=== PATIENT | female | born 1940 | race Caucasian/White ===

== ENCOUNTER 2017-02-09 12:30 | Inpatient (IN) | payer BC, OTHER ==
[~2017-02-09] VITALS: Ht 162.6 cm; Wt 77.4 kg
[2017-02-09 12:45] LABS: BASE EXCESS -9.9 mEq/L (-3 to +3); BICARBONATE 19.7 mEq/L (22-26); METHEMOGLOBIN 0.8 % (0-1.5); PCO2 58 mm Hg (35-45); PO2 270 mm Hg (80-100)
[2017-02-09 12:46] LABS: COMMENTS - BLOOD GASES A+C+; DEVICE VENT; FI02 100 %; MODE NSPONT; SITE RR; TOTAL RESP RATE 46 resp/min; pH 7.14 (7.35-7.45)
[2017-02-09 12:47] LABS: PRES. SUPPORT 10 CM/H2O
[2017-02-09 13:06] LABS: HEMATOCRIT 42.4 % (36.0-46.0); MCH 29.9 PG (29.0-34.0); MCV 90.6 FL (83-99); MEAN PLAT.VOLUME 10.3 uM^3 (9.5-12.4); PLATELET COUNT 390 K/uL (156-360); RBC DIS.WIDTH-CV 11.9 % (11.8-14.6); RBC DIS.WIDTH-SD 39.4 % (39-53); RED BLOOD COUNT 4.68 M/uL (3.80-5.20); WHITE BLOOD COUNT 14.8 K/uL (4.1-10.2)
[2017-02-09 13:16] LABS: CHLORIDE 87 mEq/L (99-109); POTASSIUM 4.4 mEq/L (3.7-5.4); SODIUM 120 mEq/L (136-147)
[2017-02-09 13:18] LABS: GLUCOSE 308 mg/dL (70-99)
[2017-02-09 13:20] LABS: ANION GAP 18 MEQ/L (2-14)
[2017-02-09 13:22] LABS: ALKALINE PHOSPHATASE 67 IU/L (3-129); GFR ESTIMATE (CALCULATED) 58 mL/min/
[2017-02-09 13:23] LABS: UREA NITROGEN (BUN) 10 mg/dL (9-23)
[2017-02-09 13:25] LABS: CREATINE KINASE 634 IU/L (1-294); TOTAL CK 634 IU/L (1-294)
[2017-02-09 13:26] LABS: TROP-I INTERPRETATION NEGATIVE; TROPONIN-I 0.18 ng/mL (0.0-0.30)
[2017-02-09 13:36] LABS: CK-MB 10.9 ng/mL (0.0-4.9)
[2017-02-09 13:49] LABS: BASE EXCESS -5.9 mEq/L (-3 to +3); BICARBONATE 20.2 mEq/L (22-26); CARBOXY HGB 0.8 % (0-5); METHEMOGLOBIN 0.8 % (0-1.5); PCO2 41 mm Hg (35-45); PO2 185 mm Hg (80-100); SITE RR
[2017-02-09 13:50] LABS: COMMENTS - BLOOD GASES A+C+; DEVICE VENT; FI02 50 %; MODE NSPONT; PEEP 5 CM/H20; PRES. SUPPORT 15 CM/H2O; TOTAL RESP RATE 25 resp/min
[2017-02-09] MEDS ORDERED: ZOCOR40 MG PO (14:18)
[2017-02-09] MEDS ORDERED: PAXIL20 MG PO (14:18)
[2017-02-09] MEDS ORDERED: SYNTHROID75 MCG PO (14:18)
[2017-02-09] MEDS ORDERED: ZESTRIL20 MG PO (14:18)
[2017-02-09 18:47] LABS: ADD MIUA? NO; BILIRUBIN NEGATIVE; BLOOD NEGATIVE; COLOR YELLOW ((YELLOW)); GLUCOSE (STRIP) 50; KETONES NEGATIVE; LEUKOCYTES NEGATIVE; NITRITE NEGATIVE; PROTEIN (STRIP) NEGATIVE; SPECIFIC GRAVITY 1.012 (1.000-1.030); UCUL ADDED? NO; UROBILINOGEN 0.2 MG/DL (0.2-1.0)
[2017-02-09 20:01] VITALS: BP 140/69
[2017-02-10 00:09] VITALS: BP 140/63
[2017-02-10 00:16] LABS: CHLORIDE 86 mEq/L (99-109); SODIUM 117 mEq/L (136-147)
[2017-02-10 00:17] LABS: GLUCOSE 167 mg/dL (70-99)
[2017-02-10 00:19] LABS: ANION GAP 12 MEQ/L (2-14)
[2017-02-10 00:21] LABS: GFR ESTIMATE (CALCULATED) > 59 mL/min/
[2017-02-10 00:22] LABS: UREA NITROGEN (BUN) 8 mg/dL (9-23)
[2017-02-10 04:46] LABS: HEMATOCRIT 33.4 % (36.0-46.0); MCH 30.1 PG (29.0-34.0); MEAN PLAT.VOLUME 9.9 uM^3 (9.5-12.4); PLATELET COUNT 313 K/uL (156-360); RBC DIS.WIDTH-CV 11.9 % (11.8-14.6); RBC DIS.WIDTH-SD 37.2 % (39-53); RED BLOOD COUNT 3.89 M/uL (3.80-5.20); WHITE BLOOD COUNT 17.6 K/uL (4.1-10.2)
[2017-02-10 04:47] LABS: MCV 85.9 FL (83-99)
[2017-02-10 04:49] LABS: CHLORIDE 82 mEq/L (99-109); POTASSIUM 4.1 mEq/L (3.7-5.4)
[2017-02-10 04:50] LABS: GLUCOSE 123 mg/dL (70-99)
[2017-02-10 04:52] LABS: ANION GAP 15 MEQ/L (2-14)
[2017-02-10 04:54] LABS: GFR ESTIMATE (CALCULATED) > 59 mL/min/
[2017-02-10 04:55] LABS: UREA NITROGEN (BUN) 10 mg/dL (9-23)
[2017-02-10 04:56] LABS: SODIUM 119 mEq/L (136-147)
[2017-02-10 05:00] VITALS: BP 156/79
[2017-02-10 08:05] VITALS: BP 143/68
[2017-02-10 10:12] LABS: TROP-I INTERPRETATION INDETERMINATE; TROPONIN-I 0.54 ng/mL (0.0-0.30)
[2017-02-10 10:31] LABS: BASE EXCESS 3.4 mEq/L (-3 to +3); BICARBONATE 26.7 mEq/L (22-26); CARBOXY HGB 1.7 % (0-5); METHEMOGLOBIN 0.8 % (0-1.5); PCO2 35 mm Hg (35-45); PO2 107 mm Hg (80-100); SITE RR; pH 7.49 (7.35-7.45)
[2017-02-10 10:32] LABS: COMMENTS - BLOOD GASES A+C+; DEVICE NC; O2 FLOW 1 L/MIN; TOTAL RESP RATE 20 resp/min
[2017-02-10 11:00] VITALS: BP 127/71
[2017-02-10 13:13] LABS: ANION GAP 13 MEQ/L (2-14); CHLORIDE 81 MEQ/L (99-109); GFR ESTIMATE (CALCULATED) > 59 mL/min/; POTASSIUM 3.7 MEQ/L (3.7-5.4); SAMPLE HEMOLYSIS CHECK 0; SAMPLE ICTERIC CHECK 0; SAMPLE LIPEMIA CHECK 0; UREA NITROGEN (BUN) 11 mg/dL (9-23)
[2017-02-10 13:14] LABS: GLUCOSE 194 mg/dL (70-99); SODIUM 115 MEQ/L (136-147)
[2017-02-10 15:10] LABS: ANION GAP 12 MEQ/L (2-14); CHLORIDE 77 MEQ/L (99-109); GFR ESTIMATE (CALCULATED) > 59 mL/min/; GLUCOSE 170 mg/dL (70-99); POTASSIUM 3.4 MEQ/L (3.7-5.4); SAMPLE HEMOLYSIS CHECK 0; SAMPLE ICTERIC CHECK 0; SAMPLE LIPEMIA CHECK 0; UREA NITROGEN (BUN) 11 mg/dL (9-23)
[2017-02-10 15:13] LABS: SODIUM 115 MEQ/L (136-147)
[2017-02-10 15:18] VITALS: BP 141/75
[2017-02-10 18:20] LABS: GLUCOSE 197 mg/dL (70-99)
[2017-02-10 18:21] LABS: ANION GAP 13 MEQ/L (2-14); CHLORIDE 79 MEQ/L (99-109); GFR ESTIMATE (CALCULATED) > 59 mL/min/; POTASSIUM 3.2 MEQ/L (3.7-5.4); SAMPLE HEMOLYSIS CHECK 0; SAMPLE ICTERIC CHECK 0; SAMPLE LIPEMIA CHECK 0; UREA NITROGEN (BUN) 11 mg/dL (9-23)
[2017-02-10 18:34] LABS: SODIUM 117 MEQ/L (136-147)
[2017-02-10 20:23] LABS: TROP-I INTERPRETATION INDETERMINATE; TROPONIN-I 0.41 ng/mL (0.0-0.30)
[2017-02-10 20:41] VITALS: BP 137/58
[2017-02-10 22:44] LABS: ANION GAP 10 MEQ/L (2-14); CHLORIDE 82 MEQ/L (99-109); GFR ESTIMATE (CALCULATED) > 59 mL/min/; GLUCOSE 183 mg/dL (70-99); POTASSIUM 3.3 MEQ/L (3.7-5.4); SAMPLE HEMOLYSIS CHECK 0; SAMPLE ICTERIC CHECK 0; SAMPLE LIPEMIA CHECK 0; SODIUM 119 MEQ/L (136-147); UREA NITROGEN (BUN) 11 mg/dL (9-23)
[2017-02-11 00:38] VITALS: BP 134/70
[2017-02-11 02:46] LABS: CHLORIDE 87 mEq/L (99-109); POTASSIUM 3.7 mEq/L (3.7-5.4); SODIUM 123 mEq/L (136-147)
[2017-02-11 02:47] LABS: GLUCOSE 159 mg/dL (70-99)
[2017-02-11 02:49] LABS: ANION GAP 13 MEQ/L (2-14)
[2017-02-11 02:51] LABS: GFR ESTIMATE (CALCULATED) > 59 mL/min/
[2017-02-11 02:52] LABS: UREA NITROGEN (BUN) 12 mg/dL (9-23)
[2017-02-11 04:19] VITALS: BP 138/48
[2017-02-11 07:48] LABS: TROP-I INTERPRETATION INDETERMINATE; TROPONIN-I 0.31 ng/mL (0.0-0.30)
[2017-02-11 08:10] VITALS: BP 135/65
[2017-02-11 08:33] LABS: ANION GAP 12 MEQ/L (2-14); CHLORIDE 88 MEQ/L (99-109); GFR ESTIMATE (CALCULATED) > 59 mL/min/; GLUCOSE 151 mg/dL (70-99); POTASSIUM 3.9 MEQ/L (3.7-5.4); SAMPLE HEMOLYSIS CHECK 0; SAMPLE ICTERIC CHECK 0; SAMPLE LIPEMIA CHECK 0; SODIUM 127 MEQ/L (136-147); UREA NITROGEN (BUN) 13 mg/dL (9-23); URIC ACID 4.1 mg/dL (3.1-9.2)
[2017-02-11 11:25] VITALS: BP 126/64
[2017-02-11 11:52] LABS: ANION GAP 10 MEQ/L (2-14); CHLORIDE 87 MEQ/L (99-109); GFR ESTIMATE (CALCULATED) > 59 mL/min/; GLUCOSE 193 mg/dL (70-99); POTASSIUM 3.5 MEQ/L (3.7-5.4); SAMPLE HEMOLYSIS CHECK 0; SAMPLE ICTERIC CHECK 0; SAMPLE LIPEMIA CHECK 0; SODIUM 124 MEQ/L (136-147); UREA NITROGEN (BUN) 15 mg/dL (9-23)
[2017-02-11 15:09] LABS: ANION GAP 10 MEQ/L (2-14); CHLORIDE 89 MEQ/L (99-109); GFR ESTIMATE (CALCULATED) > 59 mL/min/; GLUCOSE 166 mg/dL (70-99); POTASSIUM 3.7 MEQ/L (3.7-5.4); SAMPLE HEMOLYSIS CHECK 0; SAMPLE ICTERIC CHECK 0; SAMPLE LIPEMIA CHECK 0; SODIUM 127 MEQ/L (136-147); UREA NITROGEN (BUN) 14 mg/dL (9-23)
== END 2017-02-11 15:59 | disposition short-term general hospital (02) | DRG 193 ==
LOC: EME 12:30 → 4EAST 15:33 → EDOF 15:33 → 4EAST 15:33 → ENRESERV 15:34 → 4EAST 17:43
PROVIDERS: Emergency Medicine; Internal Medicine; Internal Medicine Nephrology; Internal Medicine Pulmonary Disease
DX: J18.9 Pneumonia, unspecified organism (principal); J96.01 Acute respiratory failure with hypoxia; I50.31 Acute diastolic (congestive) heart failure; E87.2 Acidosis; J20.9 Acute bronchitis, unspecified; J96.02 Acute respiratory failure with hypercapnia; E22.2 Syndrome of inappropriate secretion of antidiuretic hormone; E86.1 Hypovolemia; E87.6 Hypokalemia; I11.0 Hypertensive heart disease with heart failure; I16.1 Hypertensive emergency; I27.20 Pulmonary hypertension, unspecified; E66.9 Obesity, unspecified; E03.9 Hypothyroidism, unspecified; E78.5 Hyperlipidemia, unspecified; I34.0 Nonrheumatic mitral (valve) insufficiency; Z68.29 Body mass index [BMI] 29.0-29.9, adult; I49.3 Ventricular premature depolarization; M85.80 Other specified disorders of bone density and structure, unspecified site; Z80.0 Family history of malignant neoplasm of digestive organs; Z79.899 Other long term (current) drug therapy; Z82.49 Family history of ischemic heart disease and other diseases of the circulatory system
CPT/HCPCS: 36600; 71010; 80048; 80048 91; 80053; 81003; 82550; 82553; 82803; 83605; 83880; 83930; 83935; 84300; 84443; 84484; 84550; 85027; 87040; 87070; 87205; 87502; 93005; 93306; 94002; 94010; 94640; 94640 76; 94644; 94799; 99202; 99281; 99285; J0456; J0696; J1650; J1940; J1956; J2930; J7040; J7644